=== PATIENT | female | born 1935 | race Caucasian/White ===

== ENCOUNTER → 2016-10-09 | Day surgery (SDC) | payer MEDICARE ==
[~2016-10-09] MED LIST: Lactated Ringers 1,000 ML IV SCH; Propofol 200 MG/20 ML SDV IV ONE
[2016-10-09 08:56] VITALS: BP 139/52
--- NOTE | 2016-10-09 09:16 | OR ---
DATE OF OPERATION: 10/09/2016 PREOPERATIVE DIAGNOSIS: ABNORMAL CT OF ABDOMEN AND PELVIS. POSTOPERATIVE DIAGNOSIS: ABNORMAL CT OF ABDOMEN AND PELVIS. SURGEON: Edd Sousa MD PROCEDURE: COLONOSCOPY WITH BIOPSIES X2, POLYPECTOMY X1. ANESTHESIA: [employer] due to her advanced age. COMPLICATIONS: None. SPECIMEN: 1. Distal sigmoid biopsy x2. 2. Rectal polyp. FINDINGS: 1. Full-length colonoscopy. 2. Moderate sigmoid diverticulosis. 3. Colonic thickening, distal sigmoid colon. Likely related to tortuosity and diverticulitis. 4. Hyperplastic polyp, rectal vault. RECOMMENDATIONS: Medical followup with Dr. Estes for biopsy reports. INDICATIONS: The patient has an apparent history of altered bowel habits and had a CT scan of her abdomen and pelvis where there was a questionable apple- core lesion in the last distal sigmoid region. Dr. Estes sent her for colonoscopy. DESCRIPTION OF PROCEDURE: The patient was prepped and draped, placed in a left lateral decubitus position. A lubricated Olympus colonoscope was inserted and easily advanced to that distal sigmoid area. It was very tortuous and redundant there, and there was diverticular disease with some inflammatory changes. There were some edema and thickening of the colon. Two biopsies were taken easily and safely to go through that area to the rest of the sigmoid colon and easily advanced to the cecum to directly visualize the ileocecal valve and appendiceal orifice. Bowel prep was fine. Upon withdrawal of the scope, cecum, ascending and transverse colon were completely unremarkable. Throughout most of the left colon, the patient had mild to moderate sigmoid diverticular disease without inflammatory change. There were no polyps, masses, ulceration, or bleeding sites. No vascular abnormalities or signs of colitis. In the distal sigmoid colon at the suspected area of thickening, there was no apple core lesion seen, there was edema and what probably appears to be diverticulitis resolving with some thickening of the lining there. Two biopsies were obtained without difficulty. The scope was brought back into the rectum. No gross abnormalities were found upon retroflexion. There were 2 small perianal hyperplastic polyps. The larger of the two removed with forceps biopsy in its entirety. It was almost difficult to get two and left one for safety purposes. Air was then suctioned and the scope removed without complication. YVONNE/CLINTON /[id number]
== END ==
LOC: CC.SDS 07:12
PROVIDERS: ATTEND Family Medicine
DX: D12.8 Benign neoplasm of rectum (principal); K31.89 Other diseases of stomach and duodenum; K57.30 Diverticulosis of large intestine without perforation or abscess without bleeding; I10 Essential (primary) hypertension; Z88.2 Allergy status to sulfonamides; Z91.018 Allergy to other foods; Z79.82 Long term (current) use of aspirin; Z79.899 Other long term (current) drug therapy
CPT/HCPCS: 45380; J2704; J7120; 00810; 88305

== ENCOUNTER 2020-09-27 14:50 | Emergency (ER) | payer MEDICARE ==
--- NOTE | 2020-09-27 15:37 | EDM.PDOC ---
ED HPI GENERAL MEDICAL PROBLEM - General Chief Complaint: General Stated Complaint: Fall Time Seen by Provider: 09/27/20 15:25 Source of Information: Reports: Patient History Limitations: Reports: No Limitations - History of Present Illness INITIAL COMMENTS - FREE TEXT/NARRATIVE: This patient is a pleasant 85 year old female that presents to the ER. Patient arrives via [facility]. The patient reports at 9:45am this morning she was gong to get a shower before her hair appointment. She reports her tub sits up high, she went to lift her leg and hit the side of the tub not able to lift her leg that high today. Patient reports she then fell on her right side to the floor. Patient reports that she recalls the fall and the while time laying on the floor. Patient reports that she did not hit her head. She denies loc, n, v, vision changes, chest pain, neck pain, back pain, shortness of breath, abd pain, urinary/bowel changes. Patient reports that she has yeast on her right thigh and abd and this graff hurt. She reported to the daughter before arrival having right hip pain and left shoulder pain, which she currently reports feels fine. She is alert and oriented. No unilateral weaknesses. Stroke Score 0. GCS 15. Daughter reports she got to the patient house at about 1:55pm, so patient on floor from 9:45am to 1:55pm. Patient recalls the entire time lapse. Patient in ER is incontinent of feces dry, reports she had to go while laying on the floor. Patient is log rolled from sam bag under patient used by EMS. Onset: Today Duration: Hour(s): (4) Location: Reports: Upper Extremity, Left (shoulder), Lower Extremity, Right (right hip) Quality: Reports: Ache, Burning Severity: Mild Improves with: Reports: None Worsens with: Reports: Other (right hip, with touching the skin.), Movement ( left shoulder. Has chronic rotator cuff injury per patient, feels similair. Gets steroid injections. ) Associated Symptoms: Reports: No Other Symptoms. Denies: Confusion, Chest Pain, Cough, cough w sputum, Diaphoresis, Fever/Chills, Headaches, Loss of Appetite, Malaise, Nausea/Vomiting, Rash, Seizure, Shortness of Breath, Syncope, Weakness - Related Data Allergies Allergy/AdvReac Type Severity Reaction Status Date / Time caffeine Allergy Cannot Verified 09/27/20 15:15 Remember Sulfa (Sulfonamide Allergy Cannot Verified 09/27/20 15:15 Antibiotics) Remember Home Meds: Home Meds Aspirin [Halfprin] 81 mg PO DAILY 10/08/16 [History] Cholecalciferol (Vitamin D3) [Vitamin D3] 5,000 unit PO DAILY 10/08/16 [History] Magnesium Chloride [Slow-Mag] 2 tab PO DAILY 10/08/16 [History] Potassium Chloride 20 meq PO TID 10/08/16 [History] Simvastatin [Zocor] 40 mg PO DAILY 10/08/16 [History] atenoloL [Atenolol] 100 mg PO BID 10/08/16 [History] Spironolactone [Aldactone] 25 mg PO DAILY 09/27/20 [History] Torsemide 80 mg PO BID 09/27/20 [History] ED ROS GENERAL - Review of Systems Review Of Systems: See Below Constitutional: Reports: No Symptoms HEENT: Reports: No Symptoms Respiratory: Reports: No Symptoms. Denies: Shortness of Breath, Wheezing, Pleuritic Chest Pain, Cough, Sputum Cardiovascular: Reports: Edema (chronic +1 BLE). Denies: Chest Pain, Blood Pressure Problem, Dyspnea on Exertion, Lightheadedness, Palpitations, Syncope Endocrine: Reports: No Symptoms GI/Abdominal: Reports: No Symptoms. Denies: Abdominal Pain, Diarrhea, Nausea, Vomiting : Reports: No Symptoms Musculoskeletal: Reports: Shoulder Pain (left), Leg Pain (right hip anterior. more skin level). Denies: Neck Pain, Back Pain, Hand Pain Skin: Reports: Rash (yeast right hip/abd skin fold burning chronic) Neurological: Reports: No Symptoms Psychiatric: Reports: No Symptoms Hematologic/Lymphatic: Reports: No Symptoms Immunologic: Reports: No Symptoms ED EXAM, GENERAL - Physical Exam Exam: See Below Exam Limited By: No Limitations General Appearance: Alert, WD/WN, No Apparent Distress, Obese Eye Exam: Bilateral Eye: EOMI, Normal Inspection, PERRL Ears: Normal External Exam, Normal Canal, Hearing Grossly Normal, Normal TMs Ear Exam: Bilateral Ear: Auricle Normal, Canal Normal, TM normal Nose: Normal Inspection, Normal Mucosa, No Blood Throat/Mouth: Normal Inspection, Normal Lips, Normal Teeth (both dentures intact), Normal Gums, Normal Oropharynx, Normal Voice, No Airway Compromise Head: Atraumatic, Normocephalic Neck: Normal Inspection, Supple, Non-Tender, Full Range of Motion Respiratory/Chest: No Respiratory Distress, Lungs Clear, Normal Breath Sounds, No Accessory Muscle Use, Chest Non-Tender Cardiovascular: Normal Peripheral Pulses, Regular Rate, Rhythm, No Gallop, No JVD, No Murmur, No Rub, Other (+2 BLE edema, chronic) Peripheral Pulses: 2+: Radial (L), Radial (R), Femoral (L), Femoral (R), Popliteal (L), Popliteal (R), Posterior Tibial (L), Posterior Tibial (R), Dorsalis Pedis (L), Dorsalis Pedis (R) GI/Abdominal: Normal Bowel Sounds, Soft, Non-Tender, No Organomegaly, No Distention, No Abnormal Bruit, No Mass, Pelvis Stable (Female) Exam: Deferred Rectal (Female) Exam: Deferred Back Exam: Normal Inspection, Full Range of Motion. No: CVA Tenderness (L), CVA Tenderness (R), Decreased Range of Motion, Muscle Spasm, Paraspinal Tenderness, Vertebral Tenderness Extremities: Normal Inspection, Normal Range of Motion, No Pedal Edema, Normal Capillary Refill, Limited Range of Motion (left shoulder mild. ROM with pain. ), Other (Pain, tenderness mild right anterior hip. ROM intact. No shortening. No rotation. No obvious deformity.) Neurological: Alert, Oriented, CN II-XII Intact, Normal Cognition, No Motor/Sensory Deficits Psychiatric: Normal Affect, Normal Mood Skin Exam: Warm, Dry, Normal Color, No Rash, Wound/Incision (superficial abrasion left forearm upper. ), Other (Very dry skin throughout body. ) Lymphatic: No Adenopathy Course - Vital Signs Last Recorded V/S: Last Vital Signs Temp 97.8 F 09/27/20 15:10 Pulse 56 L 09/27/20 15:10 Resp 16 09/27/20 15:10 BP 137/51 L 09/27/20 15:10 Pulse Ox 97 09/27/20 15:10 - Orders/Labs/Meds Orders: Active Orders 24 hr Category Date Time Status Vaccines to be Administered [RC] PER UNIT ROUTINE Care 09/27/20 15:26 Active Hip Min 2V or 3V w Pelvis Rt [CR] Stat Exams 09/27/20 15:26 Taken Shoulder Comp Lt [CR] Stat Exams 09/27/20 15:26 Taken Medication Orders Neomycin/Polymyxin/Bacitracin (Bacitracin/Neomycin/Polymyxin B Oint 0.9 Gm U/D Packet) 1 each TOP ONETIME ONE Stop: 09/27/20 16:28 Labs: Laboratory Tests 09/27/20 09/27/20 09/27/20 Range/Units 15:26 15:26 15:26 WBC 11.7 H (4.0-11.0) 10^3/uL RBC 4.31 (4.00-5.50) x10^6/uL Hgb 13.0 (12.0-16.0) g/dL Hct 40.8 (37.0-47.0) % MCV 94.7 (83.0-97.0) fL MCH 30.2 (27.0-32.0) pg MCHC 31.9 L (32.0-36.0) g/dL RDW Coeff of Blanca 14.7 (11.0-15.0) % Plt Count 265 (150-400) 10^3/uL Immature Gran % (Auto) 0.3 (0.0-4.9) % Neut % (Auto) 83.8 H (41-71) % Lymph % (Auto) 8.1 L (24-44) % [place] % (Auto) 7.4 (0-10) % Eos % (Auto) 0.2 (0-6) % Baso % (Auto) 0.2 (0-1) % Neut # (Auto) 9.80 H (1.80-8.00) x10^3/uL Lymph # (Auto) 0.94 (0.60-5.00) 10^3/uL [place] # (Auto) 0.86 (0.00-1.50) 10^3/uL Eos # (Auto) 0.02 (0.00-1.50) 10^3/uL Baso # (Auto) 0.02 (0.00-0.50) 10^3/uL Immature Gran # (Auto) 0.03 (0.00-0.49) 10^3/uL Sodium 141 (136-145) mEq/L Potassium 4.3 (3.5-5.0) mEq/L Chloride 102 (98-106) mEq/L Carbon Dioxide 32 (21-32) mmol/L BUN 28 H D (7-18) mg/dL Creatinine 1.3 H D (0.6-1.0) mg/dL Est Cr Clr Drug Dosing 26.82 mL/min Estimated GFR (MDRD) 39 L (>=60) mL/min Glucose 129 H (75-99) mg/dL Lactic Acid 1.3 (0.4-2.0) mmol/L Calcium 9.2 (8.4-10.1) mg/dL Total Bilirubin 0.5 (0.0-1.0) mg/dL AST 24 (15-37) U/L ALT 28 (12-78) U/L Alkaline Phosphatase 88 (46-116) U/L Creatine Kinase 169 (21-215) U/L Total Protein 6.9 (6.4-8.2) g/dL Albumin 3.2 L (3.4-5.0) g/dL Meds: Medications Generic Name Dose Route Start Last Admin Trade Name Freq PRN Reason Stop Dose Admin Neomycin/Polymyxin/Bacitracin 1 each 09/27/20 16:27 Bacitracin/Neomycin/Polymyxin B Oint 0.9 Gm U/D Packet TOP 09/27/20 16:28 ONETIME ONE Discontinued Medications Generic Name Dose Route Start Last Admin Trade Name Freq PRN Reason Stop Dose Admin Diphtheria/Tetanus/Acell Pertussis 0.5 ml 09/27/20 15:26 09/27/20 15:50 Diphtheria,Pertussis(Acell),Tetanus Vaccine 0.5 Ml Syringe IM 09/27/20 15:27 0.5 ml .ONCE ONE Administration - Radiology Interpretation Free Text/Narrative:: Left shoulder: no fracture Right hip/pelvis: no fracture - Re-Assessments/Exams Free Text/Narrative Re-Assessment/Exam: 09/27/20 16:16 Patient CR is 1.8, BUN 28. Her last CR I have is 0.8, this is from 3 years ago. The patient does not have vomiting or diarrhea. She is able to intake PO fluids at home without issue. She also has heart failure history. At this time, I will not give IV fluids due to mentioned reasons. She was encouraged to drink fluids at home and f/u with PCP to recheck for improvement or previous CR comparison. Departure - Departure Time of Disposition: 16:13 Disposition: Home, Self-Care 01 Condition: Fair Clinical Impression: Renal insufficiency Fall Qualifiers: Encounter type: initial encounter Qualified Code(s): W19.XXXA - Unspecified fall, initial encounter - Discharge Information *PRESCRIPTION DRUG MONITORING PROGRAM REVIEWED*: Not Applicable *COPY OF PRESCRIPTION DRUG MONITORING REPORT IN PATIENT AMANDA: Not Applicable Instructions: Fall Prevention in the Home, Adult, Psra-[id number], Dehydration, Adult, [id number], Hip Pain Forms: ED Department Discharge Additional Instructions: Followup with your primary care provider this week for a recheck and possible repeat labs if needed Return to the ER for worsening of condition or any emergent concerns Increase fluid intake by drinking Tylenol for pain as needed Ice to painful areas as needed Clean wound with soap and water twice a day, rinse, pat dry. Keep clean, apply neosporin. Walker prescription #1 no refill use as need diagnosis right hip sprain Rest Sepsis Event Note (ED) - Evaluation Sepsis Screening Result: No Definite Risk - Focused Exam Vital Signs: Vital Signs Temp Pulse Resp BP Pulse Ox 09/27/20 15:10 97.8 F 56 L 16 137/51 L 97 - My Orders Last 24 Hours: My Active Orders 09/27/20 15:26 Vaccines to be Administered [RC] PER UNIT ROUTINE Hip Min 2V or 3V w Pelvis Rt [CR] Stat Shoulder Comp Lt [CR] Stat - Assessment/Plan Last 24 Hours: My Active Orders 09/27/20 15:26 Vaccines to be Administered [RC] PER UNIT ROUTINE Hip Min 2V or 3V w Pelvis Rt [CR] Stat Shoulder Comp Lt [CR] Stat Plan: PLEASE SEE RN NOTE FOR PFSH.
[2020-09-27] MEDS: Diphtheria,Pertussis(Acell),Tetanus Vaccine 0.5 ML Syringe IM ONE (15:50)
[2020-09-27] MEDS ORDERED: Bacitracin/Neomycin/Polymyxin B Oint 0.9 GM U/D Packet TOP ONE (16:27)
[2020-09-27 17:38] VITALS: BP 143/74; PULSE 61
== END 2020-09-27 17:00 | disposition home or self-care (01) ==
LOC: CC.ED 14:50
DX: S50.812A Abrasion of left forearm, initial encounter (principal); N28.9 Disorder of kidney and ureter, unspecified; Z88.8 Allergy status to other drugs, medicaments and biological substances; Z88.2 Allergy status to sulfonamides; Z79.82 Long term (current) use of aspirin; Z79.899 Other long term (current) drug therapy; Z23 Encounter for immunization; W18.30XA Fall on same level, unspecified, initial encounter
CPT/HCPCS: 36415; 73030-LT; 80053; 82550; 83605; 85025; 90471; 90715; 99283-25; 99284